=== PATIENT | female | born 1950 | race Caucasian/White ===

== ENCOUNTER → 2016-07-14 | Outpatient (CLI) | payer MEDICARE, MEDICAID ==
[~2016-07-14] MED LIST: ACET-62 PO; AMLO5TAB4 PO; ASPI81TA2 PO; BENZ0.5T3 PO; CHLO25TA2 PO; CHOL200024 PO; CYCL-375 PO; CYCLOPENTOLATE 1% EYE DROPS 2 ML BOTTLE LEFT EYE SCH; DULO30CA52 PO; FENT1PAT66 TOP; GABA-336 PO; GATIFLOXACIN 0.5% EYE DROPS 2.5ml LEFT EYE SCH; ISOS30TA6 PO; LACT10SO9 PO; LAMO200T PO; LEVO125T11 PO; LIDOCAINE 1% (10mg/ml) 2ml SDV INJ ONE; LIDOCAINE 3.5% EYE GEL PF 1ml OP ONE; LR 1,000 ML IV SCH; METO-277 PO; MOME17SP2 EA NOSTRIL; NITR0.4T SL; OMEP20CA4 PO; ONDA-55 PO; PHENYLEPHRINE 2.5% EYE DROPS 5ml LEFT EYE SCH; QUET100T PO; QUET300T3 PO; ROPI0.252 PO; ROSU10TA PO; TROPICAMIDE 1% EYE DROPS 3ml LEFT EYE SCH
== END ==
LOC: NSC 08:00 → EDSTATUS 11:30
PROVIDERS: ATTEND Ophthalmology
DX: Z53.9 Procedure and treatment not carried out, unspecified reason (principal)